=== PATIENT | female | born 1950 | race Caucasian/White ===

== ENCOUNTER → 2017-09-17 | Outpatient (CLI) | payer OTHER ==
[~2017-09-17] MED LIST: ALBU1AER9 INH; CALC500C70 PO; CLR10 PO; DEXT30TA7 PO; FIBER PO; FLVHFA110 INH; LPR25 PO; MAGN1POW PO; RIZA10TA18 PO; TRIA0.1C20 TOP
== END | disposition home or self-care (01) ==
LOC: C.LABMFLN 10:11
PROVIDERS: ATTEND Internal Medicine Pulmonary Disease
DX: J45.909 Unspecified asthma, uncomplicated (principal); R05 Cough; D64.9 Anemia, unspecified; R53.83 Other fatigue; H69.80 Other specified disorders of Eustachian tube, unspecified ear